=== PATIENT | male | born 1950 | race Caucasian/White ===

== ENCOUNTER → 2016-10-29 | Outpatient (CLI) | payer SELFPAY ==
[2015-09-21 12:07] VITALS: BP 130/83
[~2016-10-29] MED LIST: AMLO10TA2 PO; ASPI81TA50 PO; METO25TA2 PO; MULT1TAB52 PO; OLME40TA PO; OMEG1CAP6 PO
--- NOTE | 2016-10-29 10:04 | KCIC ---
PROCEDURE HISTORY Hypertriglyceridemia, screening coronary calcium scoring, hypertension, family history of heart disease. TECHNIQUE High resolution, computed tomography of the heart was performed with ECG gating and suspended respiration using the Siemens HeartView CT. No contrast material was administered. Post processing was performed on the 3-D computer workstation using diastolic phase images to measure the amount of coronary vascular calcium. Scoring was performed utilizing the Agaston Method. FINDINGS: Coronary arteries: CALCIUM IS PRESENT. TOTAL AGASTON CALCIUM SCORE 850.4 Calcium is detected in the coronary circulation and confirms the presence of atherosclerotic plaque. The score is derived from LAD 522.7, LCX 319.8, RCA 7.8. The presence of coronary calcium confirms the presence of atherosclerotic plaque. The greater the amount of coronary calcium, the greater the likelihood of stenotic or occlusive coronary artery disease. However, there is not a one-to-one relationship, and findings may not be site specific. The total amount of calcium correlates best with the total amount of atherosclerotic plaque, although the true plaque burden may be underestimated by calcium score. A high calcium score may be consistent with a MODERATE TO HIGH RISK risk of cardiovascular events within the 2-5 years. Minimal atelectasis identified in the right lung base and in the right middle lobe of the lung. IMPRESSION 1. Coronary atherosclerosis is present, extensive. 2. High risk of cardiovascular event within the next 2 to 5 years. 3. High probability of stenotic (potentially flow-limiting) or occlusive coronary artery disease RECOMMENDATIONS 1. Strongly consider further cardiac evaluation for pre-clinical coronary heart disease. 2. Locust aggressive cardiovascular risk factor modification as indicated based on risk profile. Additional supporting information concerning the findings and recommendation contained within this report can be found in the consensus statements on coronary vascular calcium published by the [place] [employer] and [place] [employer] and Prevention 5 Conference (Circulation 1996; 94: 5661-5430; J Am Angela Cardiol 2000; 36: 326-340 and Circulation 2000; 101: 111-116). PQRS STATEMENT One or more of the following individualized dose reduction techniques were utilized for this study: 1.Automated exposure control 2.Adjustment of the mA and/or kV according to patient size 3.Use of iterative reconstruction technique Electronically signed by: Triston Stevenson (Oct 29, 2016 10:03:27)
== END | disposition home or self-care (01) ==
LOC: KCIC CT 08:35
PROVIDERS: ATTEND Family Medicine
DX: I10 Essential (primary) hypertension (principal); E78.1 Pure hyperglyceridemia; Z82.49 Family history of ischemic heart disease and other diseases of the circulatory system; Z87.891 Personal history of nicotine dependence; I25.10 Atherosclerotic heart disease of native coronary artery without angina pectoris
CPT/HCPCS: 75571

== ENCOUNTER 2016-12-09 07:57 | Outpatient (CLI) | payer BC ==
[2016-12-09] VITALS (9 sets, daily range): BP systolic 90–120; BP diastolic 59–73
[~2016-12-09] VITALS: Ht 177.8 cm; Wt 123.4 kg
[2016-12-09] MEDS ORDERED: IV NORMAL SALINE 1000ML BAG 1,000 ML IV SCH (08:04)
[2016-12-09] MEDS ORDERED: SAW160CA PO (08:16)
[2016-12-09] MEDS ORDERED: CHOL20004 PO (08:16)
[2016-12-09] MEDS ORDERED: HYDR12.58 PO (08:16)
[2016-12-09] MEDS ORDERED: ASCO500T2 PO (08:16)
[2016-12-09] MEDS ORDERED: LOSA25TA4 PO (08:16)
[2016-12-09] MEDS ORDERED: METO100T2 PO (08:16)
[2016-12-09] MEDS ORDERED: LORA10TA68 PO (08:16)
[2016-12-09 08:25] LABS: HEMATOCRIT 45.1 % (39.0-53.0); HEMOGLOBIN 15.2 g/dL (13.0-17.5); RED BLOOD COUNT 4.8 x10^6/uL (4.30-5.70); WHITE BLOOD COUNT 7.2 x10^3/uL (4.0-11.0)
[2016-12-09 08:31] LABS: CREATININE 1.1 mg/dL (0.7-1.3); GFR 67.4; POTASSIUM 4.4 mmol/L (3.5-5.1)
[2016-12-09 08:35] LABS: INR 0.9 (0.8-1.1)
[2016-12-09] MEDS ORDERED: IOHEXOL 300 MG/ML 100ML VIAL. ONE (09:50)
[2016-12-09] MEDS ORDERED: LIDOCAINE 2% 20 ML VIAL. ONE (09:50)
[2016-12-09] MEDS ORDERED: FENTANYL PF 100 MCG/2 ML VIAL. ONE ×2 (10:36→10:41)
[2016-12-09] MEDS ORDERED: MIDAZOLAM HCL 2 MG/2 ML VIAL. ONE ×2 (10:36→10:41)
--- NOTE | 2016-12-09 10:40 | PDOC ---
MODERATE SEDATION ASSESSMENT RISKS/ALTERNATIVES Risks/Alternatives Risks and alternatives of this type of sedation and procedure discussed with: RISK/ALTERNATIVES: Patient H & P ON CHART H & P H & P on chart and reviewed for co-morbid conditions and appropriate labs. H&P ON CHART: Yes STATUS PREG STATUS ASSESSED: Yes MEDS/ALLERGIES REVIEWED Meds/Allergies Reviewed Medications and Allergies including time and route of recently administered narcotics and sedatives. MEDS/ALLERGIES REVIEWED: Yes ASA RATING ASA RATING: I AIRWAY ASSESSMENT Airway Assessment Airway patency, oral function limitations, presence of caps, crowns, dentures, partials, and ability to extend neck assessed. AIRWAY ASSESSMENT: Yes MALLAMPATI SCORE MALLAMPATI SCORE: I PRE-SEDATION ASSESSMENT PRE-SEDATION ASSESSMENT: Yes KONSTANTIN MARQUIS MD Dec 09, 2016 10:39
[2016-12-09] MEDS ORDERED: IOHEXOL 300 MG/ML 100ML VIAL. IART ONE (10:45)
[2016-12-09] MEDS ORDERED: LIDOCAINE 2% 20 ML VIAL. IJ ONE (10:45)
[2016-12-09] MEDS ORDERED: MIDAZOLAM HCL 2 MG/2 ML VIAL. IV ONE (10:45)
[2016-12-09] MEDS ORDERED: FENTANYL PF 100 MCG/2 ML VIAL. IV ONE (10:45)
[2016-12-09] MEDS ORDERED: CONTRAST GIVEN MC PRN (11:00)
[2016-12-09] MEDS ORDERED: ONDANSETRON PF 4 MG/2 ML VIAL. ONE (13:04)
[2016-12-09] MEDS ORDERED: ONDANSETRON PF 4 MG/2 ML VIAL. IV ONE (13:45)
--- NOTE | 2016-12-09 18:25 | PDOC4 ---
PROCEDURE Procedure PROCEDURE NOTE THIS REPORT IS BEING DONE IN Rep BECAUSE IN[employer] IS NOT AVAILABLE IN THE COMPUTER (UNABLE TO SIGN ON) PROCEDURE: L HEART CATH WITH VENTRICULOGRAM. Procedure note: After obtaining informed consent the patient was taken to the [facility] and placed on the [facility] table in the supine position. The right groin was prepped and draped in the usual fashion. The area was infiltrated with Xylocaine to obtain topical anesthesia. Using Seldinger technique a Cordis sheath was inserted into the femoral artery. A left Rosina catheter was then utilized to engage the left coronary os and views of the left coronary artery were then done. A right Rosina catheter was then utilized to engage the right coronary os and views of the right coronary artery were then done. A pigtail catheter was then utilized to do a ventriculogram. Pullback pressures from the LV to the aorta were recorded. With the pigtail catheter I then performed a view of the femoral artery. After this was reviewed I decided to proceed with deployment of an Angio-Seal. The sheath was pulled and an Angio-Seal collagen plug was deployed in place. Once this was done there appeared to be no significant bleeding present. The patient was then transferred to the recovery room in satisfactory condition after tolerating the procedure rather well. Findings: Coronaries: The left main is large and normal. The LAD is a large vessel with multiple calcifications but no significant areas of stenosis. The diagonals were normal. The circumflex is a very large dominant vessel that has some calcifications and no significant stenosis of the proximal or mid segment. In the distal segment there appears to be an area of stenosis up was estimated to be about 40% stenosis beyond that point there is a marginal branch that appears to be normal and there is an AV groove branch that appears to have a very long collateral that goes all the way to the area of the conus branch off the right coronary artery. This AV groove branch appears to have a 50% area of stenosis at its ostium. The right coronary artery is a smaller vessel that gives a PDA but no posterolateral branch that is coming off the circumflex. No significant area of stenosis was seen in the right coronary artery and the conus branch appears to feed the long collateral from the AV groove branch. Ventriculogram: The left ventricle is normal in size the global left ventricular ejection fraction was estimated to be about 50%. The left ventricular end-diastolic pressure was 14 mmHg. There was no gradient across the aortic valve. Impression: This patient appears to have mild coronary artery disease even though there are a lot of calcifications present both in the LAD as well as the circumflex. I would recommend medical treatment for this patient including blood pressure control, diet, exercise, weight loss, and lifestyle changes. KONSTANTIN MARQUIS MD Dec 09, 2016 18:25
--- NOTE | 2016-12-09 18:46 | CARD ---
APPROVED REPORT CASE TECHNIQUE During this case, Fluoroscopy and low osmolar contrast were used for imaging. PROCEDURE NARRATIVE [facility] PROCEDURE Patient Name: Romulo Spencer Number: [id number] Date of : 2Patient Status: Departed Clinic Attending Doctor: James Castañeda [facility] Number: [id number] PROCEDURE NOTE PROCEDURE Procedure PROCEDURE NOTE THIS REPORT IS BEING DONE IN [employer] BECAUSE [employer] IS NOT AVAILABLE IN THE COMPUTER (UNABLE TO SI GN ON) PROCEDURE: L HEART CATH WITH VENTRICULOGRAM. Procedure note: After obtaining informed consent the patient was taken to the Whale Trainer and placed on the Whale Trainer tab le in the supine position. The right groin was prepped and draped in the usual fashion. The area was infiltrated with Xylocaine to obtain topical anesthesia. Using Seldinger technique a Cordis sheath was inserted into the femoral artery. A left Rosina catheter was then utilized to engage the left coronary os and views of the left moyer ry artery were then done. A right Rosina catheter was then utilized to engage the right coronary os and views of the right cor onary artery were then done. A pigtail catheter was then utilized to do a ventriculogram. Pullback pressures from the LV to the aorta were recorded. With the pigtail catheter I then performed a view of the femoral artery. After this was reviewed I decided to proceed with deployment of an Angio-Seal. The sheath was pulled and an Angio-Seal collagen plug was deployed in place. Once this was done there appeared to be no significant bleeding present. The patient was then transferred to the recovery room in satisfactory condition after tolerating the procedure rather well. Findings: Coronaries: The left main is large and normal. The LAD is a large vessel with multiple calcifications but no significant areas of stenosis. The diagonals were normal. The circumflex is a very large mayelin nant vessel that has some calcifications and no significant stenosis of the proximal or mid segment. In the distal segment there appears to be an area of stenosis up was estimated to be about 40% stenos is beyond that point there is a marginal branch that appears to be normal and there is an AV groove b ranch that appears to have a very long collateral that goes all the way to the area of the conus bran ch off the right coronary artery. This AV groove branch appears to have a 50% area of stenosis at its ostium. The right coronary artery is a smaller vessel that gives a PDA but no posterolateral branch that is coming off the circumflex. No significant area of stenosis was seen in the right coronary art jayla and the conus branch appears to feed the long collateral from the AV groove branch. Ventriculogram: The left ventricle is normal in size the global left ventricular ejection fraction wa s estimated to be about 50%. The left ventricular end-diastolic pressure was 14 mmHg. There was no gr adient across the aortic valve. Conclusion This patient appears to have mild coronary artery disease even though there are a lot of calcificatio ns present both in the LAD as well as the circumflex. I would recommend medical treatment for this patient including blood pressure control, diet, exercise , weight loss, and lifestyle changes. JAMES CASTAÑEDA MDMar 2016 18:25 Recommendations Medical Therapy Weight Loss Reduction Program
== END 2016-12-09 14:00 | disposition home or self-care (01) ==
LOC: CCL 07:57
PROVIDERS: ATTEND Internal Medicine Cardiovascular Disease
DX: I25.10 Atherosclerotic heart disease of native coronary artery without angina pectoris (principal); E78.00 Pure hypercholesterolemia, unspecified; I10 Essential (primary) hypertension; J44.9 Chronic obstructive pulmonary disease, unspecified; E66.9 Obesity, unspecified; K21.9 Gastro-esophageal reflux disease without esophagitis; M19.90 Unspecified osteoarthritis, unspecified site; Z87.39 Personal history of other diseases of the musculoskeletal system and connective tissue; Z72.89 Other problems related to lifestyle
CPT/HCPCS: 36415; 80048; 85027; 85610; 93458; C1769; C1771; C1892; J2250; J2405; J3010; Q9967; G0269